=== PATIENT | female | born 2000 | race African-American/Black ===

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

== ENCOUNTER 2018-08-04 02:41 | Emergency (ER) | payer MEDICAID, OTHER ==
[~2018-08-04] VITALS: Ht 152.4 cm; Wt 93.0 kg
[~2018-08-04 02:41] MED LIST changes: +ALBU2.5V8 IH; -ALBU6.7H IH; +ONDA4TAB10 PO
[2018-08-04] MEDS ORDERED: PROCHLORPERAZINE 10 MG/2 ML VIAL. ONE (03:12)
[2018-08-04] MEDS ORDERED: ACETAMINOPHEN 500 MG TABLET PO ONE ×2 (03:12→03:15)
[2018-08-04] MEDS ORDERED: diphenhydrAMINE 50 MG/ML VIAL ONE (03:12)
[2018-08-04] MEDS ORDERED: IV NORMAL SALINE 500ML 500 ML IV ONE (03:15)
[2018-08-04] MEDS ORDERED: PROCHLORPERAZINE 10 MG/2 ML VIAL. IV ONE (03:15)
[2018-08-04] MEDS ORDERED: diphenhydrAMINE 50 MG/ML VIAL IVP ONE (03:15)
--- NOTE | 2018-08-04 03:20 | PHYS DOC ---
Adult General Chief Complaint Chief Complaint headache HPI HPI 20 weeks 19 years old presented to the emergency department with headache started today describes a throbbing headache all over her head suture with nausea and chest pain she did not take anything for it at home. Her boyfriend stated that she's been going through a lot of stress Review of Systems Review of Systems Constitutional: Denies fever or chills [] Eyes: Denies change in visual acuity, redness, or eye pain [] HENT: Denies nasal congestion or sore throat [] Respiratory: Denies cough or shortness of breath [] Cardiovascular: No additional information not addressed in HPI [] GI: Denies abdominal pain, nausea, vomiting, bloody stools or diarrhea [] : Denies dysuria or hematuria [] Musculoskeletal: Denies back pain or joint pain [] Integument: Denies rash or skin lesions [] Neurologic: Denies focal weakness or sensory changes [] Endocrine: Denies polyuria or polydipsia [] All other systems were reviewed and found to be within normal limits, except as documented in this note. Current Medications Current Medications Current Medications Medications (Trade) Dose Ordered Sig/Ivan Start Time Stop Time Status Last Admin Dose Admin Acetaminophen (Tylenol) 500 mg STK-MED ONCE 08/04/18 03:12 08/04/18 03:14 DC Diphenhydramine HCl (Benadryl) 25 mg 1X ONCE 08/04/18 03:15 08/04/18 03:16 UNV Prochlorperazine Edisylate (Compazine) 10 mg STK-MED ONCE 08/04/18 03:12 08/04/18 03:14 DC Sodium Chloride 500 ml @ 0 mls/hr 1X ONCE 08/04/18 03:15 08/04/18 03:16 UNV Allergies Allergies Allergies Coded Allergies Type Severity Reaction Last Updated Verified Penicillins Allergy Unknown Hives 05/26/17 Yes amoxicillin Allergy Unknown Hives 05/26/17 Yes Physical Exam Physical Exam Constitutional: Well developed, well nourished, no acute distress, non-toxic appearance. [] HENT: Normocephalic, atraumatic, bilateral external ears normal, oropharynx moist, no oral exudates, nose normal. [] Eyes: PERRLA, EOMI, conjunctiva normal, no discharge. [] Neck: Normal range of motion, no tenderness, supple, no stridor. [] Cardiovascular:Heart rate regular rhythm, no murmur [] Lungs & Thorax: Bilateral breath sounds clear to auscultation [] Abdomen: Bowel sounds normal, soft, no tenderness, no masses, no pulsatile masses. [] Skin: Warm, dry, no erythema, no rash. [] Back: No tenderness, no CVA tenderness. [] Extremities: No tenderness, no cyanosis, no clubbing, ROM intact, no edema. [] Neurologic: Alert and oriented X 3, normal motor function, normal sensory function, no focal deficits noted. [] Psychologic: Affect normal, judgement normal, mood normal. [] Current Patient Data Vital Signs Vital Signs Date Time Temp Pulse Resp B/P (MAP) Pulse Ox O2 Delivery O2 Flow Rate FiO2 08/04/18 02:46 98.4 106 22 98 Room Air EKG EKG [] Radiology/Procedures Radiology/Procedures [] Course & Med Decision Making Course & Med Decision Making Pertinent Labs and Imaging studies reviewed. (See chart for details) [] Final Impression Final Impression [] Problems: (1) Headache Qualifiers: Qualified Codes: G44.209 - Tension-type headache, unspecified, not intractable Dragon Disclaimer Dragon Disclaimer This electronic medical record was generated, in whole or in part, using a voice recognition dictation system. PRINCE ALEJANDRA MD Aug 04, 2018 03:20
[2018-08-04] MEDS ORDERED: IV NORMAL SALINE 1,000ML 1,000 ML IV ONE (03:45)
[2018-08-04 04:05] LABS: BASO # 0.1 x10^3/uL (0.0-0.2); BASO % 1 % (0-3); EOS # 0.4 x10^3/uL (0.0-0.7); EOS % 5 % (0-3); HEMATOCRIT 34.6 % (36.0-47.0); HEMOGLOBIN 11.9 g/dL (12.0-15.5); LYMPH % 12 % (24-48); MEAN CORPUSCULAR HEMOGLOBIN 31 pg (25-35); MEAN CORPUSCULAR HGB CONC 34 g/dL (31-37); MEAN CORPUSCULAR VOLUME 90 fL (79-100); MONO # 0.9 x10^3/uL (0.0-1.1); MONO % 10 % (0-9); NEUT # 6.6 x10^3uL (1.8-7.7); NEUT % 73 % (31-73); PLATELET COUNT 229 x10^3/uL (140-400); RED BLOOD COUNT 3.86 x10^6/uL (3.50-5.40); RED CELL DISTRIBUTION WIDTH 13.9 % (11.5-14.5)
[2018-08-04 04:13] LABS: CALCIUM 8.5 mg/dL (8.5-10.1); CREATININE 0.6 mg/dL (0.6-1.0); GFR 155.8; POTASSIUM 3.5 mmol/L (3.5-5.1)
[2018-08-04 04:25] VITALS: BP 100/56
--- NOTE | 2018-08-04 05:58 | EKG ---
[address] [address] Test Date: 2018-08-04 Test Time: 03:08:52 Pat Name: ANEL KOCH Department: Room: Gender: F [place]: : 2000 Requested By: PRINCE ALEJANDRA Order Number: [id number] Reading MD: Raphael Clement Measurements Intervals [place] Rate: 108 P: 34 MO: 138 QRS: 40 QRSD: 80 T: 4 QT: 330 QTc: 446 Interpretive Statements SINUS TACHYCARDIA NONSPECIFIC ST-T WAVE CHANGES. Electronically Signed On 08-04-2018 8:58:11 SUPPLY CHAIN DESIGN MANAGER by Raphael Clement
== END 2018-08-04 04:41 | disposition home or self-care (01) ==
LOC: ER 02:41
DX: O26.892 Other specified pregnancy related conditions, second trimester (principal); G44.209 Tension-type headache, unspecified, not intractable; R11.0 Nausea; R07.89 Other chest pain; Z3A.20 20 weeks gestation of pregnancy; Z88.0 Allergy status to penicillin; Z88.1 Allergy status to other antibiotic agents
CPT/HCPCS: 36415; 80048; 84484; 85025; 93005; 96374; 96375; 99284; J0780; J1200; J7030

== ENCOUNTER 2019-01-06 04:06 | Emergency (ER) | payer MEDICAID, OTHER ==
[~2019-01-06] VITALS: Ht 152.4 cm; Wt 90.0 kg
[2019-01-06 04:10] VITALS: BP 104/72
--- NOTE | 2019-01-06 04:12 | ED.ADGEN ---
Past History Past Medical History: No Pertinent History Past Surgical History: No Surgical History Smoking: Non-smoker Alcohol Use: None Drug Use: None Adult General Chief Complaint Chief Complaint ".. About 2 yesterday.. I started getting a fever.. and this Lt breast started hurting... I almost could not stand to breast feed.. here on the Lt. " [facility] HPI Patient is a 18 year old female who presents with above hx and complaints Lt. Breast mastitis. Pt. Lt breast is swollen, erythemic, tender. No axillary adenopathy. Patient delivered in December and has been breast-feeding without problems until yesterday. No History of immunosuppression. No history of travel. No history of trauma. Patient does have a mild headache, but started the same time as the left breast tenderness. Patient as a child did develop a rash with p enicillin, But thinks she has used Keflex before for infections. Patient's had no previous history of mastitis. Patient is normally healthy. 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 Review of Systems Review of Systems Constitutional: Complaints of fever Eyes: Denies change in visual acuity, redness, or eye pain [] HENT: Denies nasal congestion or sore throat [] Respiratory: Denies cough or shortness of breath []complains of left breast pain, swelling, erythema Cardiovascular: No additional information not addressed in HPI [] GI: Denies abdominal pain, nausea, vomiting, bloody stools or diarrhea [] : Denies dysuria or hematuria [] Musculoskeletal: Denies back pain or joint pain [] Integument: Denies rash or skin lesions [] Neurologic: Complaints of mild headache.. Denies, focal weakness or sensory changes [] Endocrine: Denies polyuria or polydipsia [] All other systems were reviewed and found to be within normal limits, except as documented in this note. Family History Family History Noncontributory Current Medications Current Medications Current Medications Medications (Trade) Dose Ordered Sig/Ivan Start Time Stop Time Status Last Admin Dose Admin Acetaminophen (Tylenol) 500 mg STK-MED ONCE 01/06/19 04:42 01/06/19 04:43 DC Cephalexin HCl (Keflex) 250 mg 1X ONCE 01/06/19 05:00 01/06/19 05:01 DC 01/06/19 04:44 250 MG Lactated Ringer's 1,000 ml @ 1,000 mls/hr Q1H 01/06/19 04:30 01/06/19 04:54 DC Oxycodone/ Acetaminophen (Percocet 5/325) 1 tab 1X ONCE 01/06/19 04:45 01/06/19 04:48 DC 01/06/19 04:48 1 TAB Allergies Allergies Allergies Coded Allergies Type Severity Reaction Last Updated Verified Penicillins Allergy Unknown Hives 05/26/17 Yes amoxicillin Allergy Unknown Hives 05/26/17 Yes Physical Exam Physical Exam Constitutional: Well developed, well nourished, in moderately acute distress, non-toxic appearance. [] HENT: Normocephalic, atraumatic, bilateral external ears normal, oropharynx moist, no oral exudates, nose normal. [] Eyes: PERRLA, EOMI, conjunctiva normal, no discharge. [] Neck: Normal range of motion, no tenderness, supple, no stridor. [] Cardiovascular:Heart rate regular rhythm, no murmur [] Lungs & Thorax: Bilateral breath sounds with apex on auscultation []left breast tender, swollen, erythemic. Abdomen: Bowel sounds normal, soft, no tenderness, no masses, no pulsatile masses. [] Skin: Warm, dry, no erythema, no rash. [] Back: No tenderness, no CVA tenderness. [] Extremities: No tenderness, no cyanosis, no clubbing, ROM intact, no edema. [] Neurologic: Alert and oriented X 3, normal motor function, normal sensory function, no focal deficits noted. []DTRs +2 patella and brachial. No drift. Ambulatory without problems. Psychologic: Affect anxious, judgement normal, mood normal. [] Current Patient Data Vital Signs Vital Signs Date Time Temp Pulse Resp B/P (MAP) Pulse Ox O2 Delivery O2 Flow Rate FiO2 01/06/19 04:10 99.8 110 20 99 Room Air EKG EKG [] Radiology/Procedures Radiology/Procedures deferred[] Course & Med Decision Making Course & Med Decision Making Pertinent Labs and Imaging studies reviewed. (See chart for details) Labs and CT deferred at this time- Patient will treat fever and left breast tenderness as mastitis. Patient massage breast.. Patient to continue the feed with left breast. Moist heat packs. Patient to do a trial of Keflex 250 mg 4 times a day. If patient develops a rash she will need to change to an alternate antibiotic. Patient follow-up primary care. Patient take Tylenol for pain. Patient return if any concerns. She informed that antibiotics may reduce effectiveness of control [] Final Impression Final Impression 1. Left mastitis[] Sayraon Disclaimer Sayraon Disclaimer This electronic medical record was generated, in whole or in part, using a voice recognition dictation system. Discharge Summary Visit Information Final Diagnosis Problems Medical Problems: (1) Mastitis Status: Acute Brief Hospital Course Allergies Allergies Coded Allergies Type Severity Reaction Last Updated Verified Penicillins Allergy Unknown Hives 05/26/17 Yes amoxicillin Allergy Unknown Hives 05/26/17 Yes Vital Signs Vital Signs Date Time Temp Pulse Resp B/P (MAP) Pulse Ox O2 Delivery O2 Flow Rate FiO2 01/06/19 04:10 99.8 110 20 99 Room Air Brief Hospital Course Ms. Aguilar is a 18 old female who presented with Lt breast mastitis Discharge Information Condition at Discharge: Stable Disposition/Orders: D/C to Home Dischare Medications Current Medications Lactated Ringer's 1,000 ml @ 1,000 mls/hr Q1H IV ; Start 01/06/19 at 04:30; Stop 01/06/19 at 04:54; Status DC Cephalexin HCl (Keflex) 250 mg 1X ONCE PO Last administered on 01/06/19at 04:44; Admin Dose 250 MG; Start 01/06/19 at 05:00; Stop 01/06/19 at 05:01; Status DC Acetaminophen (Tylenol) 500 mg STK-MED ONCE PO ; Start 01/06/19 at 04:42; Stop 01/06/19 at 04:43; Status DC Oxycodone/ Acetaminophen (Percocet 5/325) 1 tab 1X ONCE PO Last administered on 01/06/19at 04:48; Admin Dose 1 TAB; Start 01/06/19 at 04:45; Stop 01/06/19 at 04:48; Status DC Active Scripts Active Keflex (Cephalexin) 500 Mg Capsule 250 Mg PO QID 10 Days Zofran Odt (Ondansetron) 4 Mg Tab.rapdis 4 Mg PO Q6HRS Naproxen Sodium 275 Mg Tablet 275 Mg PO BID 7 Days Prednisone 20 Mg Tablet 3 Tab PO DAILY 5 Days Proventil Hfa Inhaler (Albuterol Sulfate) 6.7 Gm Hfa.aer.ad 1-2 Puff IH PRN Q4HRS PRN 7 Days Please dispense inhaler with a spacer Reported No Known Medications Prior To Admisstion (Info) Each 1 Each Dragon Disclaimer This chart was dictated in whole or in part using Voice Recognition software in a busy, high-work load, and often noisy Emergency Department environment. It may contain unintended and wholly unrecognized errors or omissions. RULA JOLLEY MD January 06, 2019 04:12
[2019-01-06] MEDS ORDERED: IV RINGERS SOLUTION,LACTATED 1,000 ML IV SCH (04:30)
[2019-01-06] MEDS ORDERED: ACETAMINOPHEN 500 MG TABLET PO ONE (04:42)
[2019-01-06] MEDS ORDERED: CEPH-264 PO (04:42)
[2019-01-06] MEDS ORDERED: oxyCODONE/APAP 5/325 1 TAB TABLET PO ONE (04:45)
--- NOTE | 2019-01-06 04:50 | RAD ---
CT brain without contrast. HISTORY: Headache Noncontrast CT images were obtained to the brain. Visualized sinuses are clear. Mastoids are normally aerated. There is no intracranial hemorrhage or subdural hematoma. There are artifacts off the metallic density devices in the hair. There is no mass or shift of the midline. There are no abnormal areas of increased or decreased attenuation. Ventricles are normal in size. An acute CVA is not identified. IMPRESSION: 1. Artifacts. 2. No intracranial hemorrhage or acute finding noted. Electronically signed by: Colton Hammer MD (01/06/2019 4:47 AM) [id number]
[2019-01-06] MEDS ORDERED: CEPHALEXIN 250 MG CAPSULE PO ONE (05:00)
== END 2019-01-06 05:01 | disposition home or self-care (01) ==
LOC: ER 04:06
DX: O91.22 Nonpurulent mastitis associated with the puerperium (principal); Z88.0 Allergy status to penicillin; Z88.1 Allergy status to other antibiotic agents
CPT/HCPCS: 70450; 99284-25

== ENCOUNTER 2019-06-14 20:25 | Emergency (ER) | payer OTHER ==
[~2019-06-14] VITALS: Ht 152.4 cm; Wt 90.0 kg
[~2019-06-14 20:25] MED LIST changes: +CEPH-264 PO
[2019-06-14 20:40] VITALS: BP 109/72
[2019-06-14] MEDS ORDERED: IPRATRPIUM/ALBUTEROL 0.5/2.5MG 3 ML NEBU. NEB ONE (20:45)
[2019-06-14] MEDS ORDERED: ALBUTEROL SULFATE 2.5 MG/3 ML NEBU. ONE (20:58)
[2019-06-14] MEDS ORDERED: LIDO:MAALOX 1:1 20 ML SINGLE DOSE. PO ONE (21:00)
[2019-06-14] MEDS ORDERED: DEXAMETHASONE SOD PHOS 10 MG/ML VIAL PO ONE (21:00)
[2019-06-14] MEDS ORDERED: ALBUTEROL SULFATE 2.5 MG/3 ML NEBU. NEB ONE (21:00)
--- NOTE | 2019-06-14 21:22 | PHYS DOC ---
Past History Past Medical History: Asthma Past Surgical History: No Surgical History Smoking: Non-smoker Alcohol Use: None Drug Use: None Adult General Chief Complaint Chief Complaint: ASTHMA HPI HPI Patient is a 18 year old female who presents with complaint of shortness of breath and coughing. Patient states her symptoms started suddenly today. Notes that she has history of asthma. States that her asthma symptoms are exacerbated by cold weather. The weather has recently become very cold over the past few days. Denies any fevers. States that she has been trying to use her albuterol inhaler with no significant relief. Has been coughing up yellow sputum. Denies chest or abdominal pain currently. States that she has been having drainage which has been making her cough very persistent. Has been having vomiting due to coughing hard. Review of Systems Review of Systems Constitutional: Denies fever or chills [] Eyes: Denies change in visual acuity, redness, or eye pain [] HENT: Postnasal drip, sore throat[] Respiratory: Cough, wheezing, shortness of breath[] Cardiovascular: Denies chest pain or edema[] GI: Posttussive emesis, denies abdominal pain, bloody stools or diarrhea [] : Denies dysuria or hematuria [] Musculoskeletal: Denies back pain or joint pain [] Integument: Denies rash or skin lesions [] Neurologic: Denies headache, focal weakness or sensory changes [] All other systems were reviewed and found to be within normal limits, except as documented in this note. Current Medications Current Medications Current Medications Medications (Trade) Dose Ordered Sig/Ivan Start Time Stop Time Status Last Admin Dose Admin Albuterol Sulfate (Ventolin) 2.5 mg STK-MED ONCE 06/14/19 20:58 06/14/19 20:58 DC Albuterol/ Ipratropium (Duoneb) 3 ml 1X ONCE 06/14/19 20:45 06/14/19 21:02 DC 06/14/19 20:45 3 ML Dexamethasone Sodium Phosphate (Decadron) 10 mg 1X ONCE 06/14/19 21:00 06/14/19 21:02 DC 06/14/19 21:13 10 MG Multi-Ingredient Mouthwash/Gargle (Gi Cocktail) 20 ml 1X ONCE 06/14/19 21:00 06/14/19 21:02 DC 06/14/19 21:13 20 ML Allergies Allergies Allergies Coded Allergies Type Severity Reaction Last Updated Verified Penicillins Allergy Unknown Hives 05/26/17 Yes amoxicillin Allergy Unknown Hives 05/26/17 Yes Physical Exam Physical Exam Constitutional: Alert, afebrile, appears in moderate distress due to coughing. [] HENT: Normocephalic, atraumatic, bilateral external ears normal, oropharynx moist, no oral exudates, nose normal. [] Eyes: PERRLA, EOMI, conjunctiva normal, no discharge. [] Neck: Normal range of motion, no tenderness, supple, no stridor. [] Cardiovascular: Tachycardiac, regular rhythm, no murmur [] Lungs & Thorax: Mildly decreased air movement bilaterally, expiratory wheezes bilaterally, no rales[] Abdomen: Bowel sounds normal, soft, no tenderness, no masses, no pulsatile masses. [] Skin: Warm, dry, no erythema, no rash. [] Back: No tenderness, no CVA tenderness. [] Extremities: No tenderness, no cyanosis, no clubbing, ROM intact, no edema. [] Neurologic: Alert and oriented X 3, normal motor function, normal sensory function, no focal deficits noted. [] Current Patient Data Vital Signs Vital Signs Date Time Temp Pulse Resp B/P (MAP) Pulse Ox O2 Delivery O2 Flow Rate FiO2 06/14/19 20:40 98.6 137 24 92 Room Air Lab Results Current Medications Medications (Trade) Dose Ordered Sig/Ivan Route PRN Reason Start Time Stop Time Status Last Admin Dose Admin Albuterol/ Ipratropium (Duoneb) 3 ml 1X ONCE NEB 06/14/19 20:45 06/14/19 21:02 DC 06/14/19 20:45 Albuterol Sulfate (Ventolin) 2.5 mg 1X ONCE NEB 06/14/19 21:00 06/14/19 21:02 DC 06/14/19 21:13 Albuterol Sulfate (Ventolin) 2.5 mg STK-MED ONCE .ROUTE 06/14/19 20:58 06/14/19 20:58 DC Dexamethasone Sodium Phosphate (Decadron) 10 mg 1X ONCE PO 06/14/19 21:00 06/14/19 21:02 DC 06/14/19 21:13 Multi-Ingredient Mouthwash/Gargle (Gi Cocktail) 20 ml 1X ONCE PO 06/14/19 21:00 06/14/19 21:02 DC 06/14/19 21:13 EKG EKG Not performed[] Radiology/Procedures Radiology/Procedures Two-view chest x-ray interpreted by me: No infiltrate, no effusion, normal cardiac silhouette[] Course & Med Decision Making Course & Med Decision Making Pertinent Labs and Imaging studies reviewed. (See chart for details) Patient was treated in the emergency department with one unit dose DuoNeb and one unit dose AccuNeb in addition to oral Decadron and a GI cocktail. After treatment, the patient's work of breathing has significantly improved and patient's coughing has decreased considerably. Patient's heart rate was noted to be elevated in the emergency department, however in checking on patient's vital signs from previous visits, she notably has an elevated heart rate at baseline of 105-110 bpm. Clinically the patient appears improved and is not displaying labored respirations at this time. The patient appears appropriate for outpatient treatment and recommended follow-up in the next 3 days with primary doctor for reevaluation. Discharged with prescriptions for Tessalon Perles, azithromycin, 5 days of prednisone, and advised patient to use albuterol inhaler 2 puffs every 4 hours as needed for wheezing and shortness of breath. Recommended return to the emergency department for any worsening symptoms. Patient was understanding and in agreement with treatment plan.[] Dragon Disclaimer Dragon Disclaimer This electronic medical record was generated, in whole or in part, using a voice recognition dictation system. Departure Departure: Impression: Primary Impression: Acute asthma exacerbation Disposition: HOME, SELF-CARE Condition: IMPROVED Referrals: BASHIR STRAUSS (PCP) Patient Instructions: Asthma, Adult Additional Instructions: Follow-up with your primary care provider in 3 days for reevaluation. Return to the emergency department for any worsening symptoms. Scripts Benzonatate (TESSALON PERLE) 100 Mg Capsule 1 CAP PO TID PRN for COUGH, #21 CAP Prov: KELLY HOWARD MD 06/14/19 Azithromycin (AZITHROMYCIN TABLET) 250 Mg Tablet 1 PKG PO UD for 5 Days, #6 TAB 0 Refills 2 the first day followed by 1 for days 2-5 Prov: KELLY HOWARD MD 06/14/19 Prednisone (PREDNISONE) 20 Mg Tablet 60 MG PO DAILY for 5 Days, #15 TAB Prov: KELLY HOWARD MD 06/14/19 Problem Qualifiers Primary Impression: Acute asthma exacerbation Asthma severity: moderate Asthma persistence: persistent Qualified Codes: J45.41 - Moderate persistent asthma with (acute) exacerbation KELLY HOWARD MD Jun 14, 2019 21:22
[2019-06-14] MEDS ORDERED: BENZ100C PO (21:32)
[2019-06-14] MEDS ORDERED: AZIT250T6 PO (21:32)
[2019-06-14] MEDS ORDERED: PRED20TA PO (21:32)
--- NOTE | 2019-06-14 22:08 | RAD ---
EXAM: CHEST 2 VIEWS. HISTORY: Cough, shortness of breath. COMPARISON: 05/03/2017. FINDINGS: Frontal and lateral views of the chest are obtained. The inspiration is small. Basilar opacities may indicate atelectasis or atypical pneumonia in the setting. There is no pneumothorax or pleural effusion. The heart is not enlarged. IMPRESSION: 1. Correlate for evidence of infection to differentiate atypical pneumonia from basilar atelectasis. Electronically signed by: Oly Jackson MD (06/14/2019 10:05 PM) [employer]
== END 2019-06-14 21:36 | disposition home or self-care (01) ==
LOC: ER 20:25
DX: J45.41 Moderate persistent asthma with (acute) exacerbation (principal); Z88.1 Allergy status to other antibiotic agents; Z88.0 Allergy status to penicillin
CPT/HCPCS: 71046; 94640; 99284; J1100; J7613; J7620

== ENCOUNTER 2020-10-12 18:49 | Emergency (ER) | payer OTHER ==
[~2020-10-12] VITALS: Ht 152.4 cm; Wt 90.0 kg
[~2020-10-12 18:49] MED LIST changes: +AZIT250T6 PO; +BENZ100C PO
[2020-10-12 19:16] VITALS: BP 98/66
[2020-10-12 20:12] LABS: BILIRUBIN,URINE NEG (NEG); CLARITY,URINE CLEAR; COLOR,URINE YELLOW; GLUCOSE,URINE NEG (NEG)
[2020-10-12 20:13] LABS: BACTERIA,URINE FEW /HPF (0-FEW); NITRITE,URINE NEG (NEG); SQUAMOUS EPITHELIAL CELL,UR MOD /LPF; UROBILINOGEN,URINE 0.2 mg/dL (0.2 mg/dL)
[2020-10-12] MEDS ORDERED: METR500T PO (22:02)
--- NOTE | 2020-10-12 22:02 | PHYS DOC ---
Past History Past Medical History: Asthma (CALE CANO APRN) Past Surgical History: No Surgical History (CALE CANO APRN) Smoking: Non-smoker Alcohol Use: None Drug Use: None (CALE CANO APRN) Adult General Chief Complaint Chief Complaint: VAGINAL PROBLEM HPI HPI Patient is a 20-year-old female who presents to the emergency department reporting vaginal itching and irritation that started today after having rough sex. Patient denies any vaginal discharge, denies urinary tract infection type signs and symptoms, states she is unsure about STIs. Patient denies abdominal pain, nausea, vomiting, diarrhea, constipation. Patient denies chest congestion or chest pains, patient denies shortness of breath, nasal congestion, visual disturbances, homicidal suicidal ideations, rashes of her skin. Patient denies any loss of taste or loss of smell, denies fever or chills at home. (CALE CANO APRN) Review of Systems Review of Systems 14 body systems of review of systems have been reviewed. See HPI for pertinent positives and negative responses, otherwise all other systems are negative, nonpertinent or noncontributory. (CALE CANO APRN) Allergies Allergies Allergies Coded Allergies Type Severity Reaction Last Updated Verified Penicillins Allergy Unknown Hives 10/12/20 Yes amoxicillin Allergy Unknown Hives 10/12/20 Yes (CALE CANO APRN) Physical Exam Physical Exam Constitutional: Well developed, well nourished, no acute distress, non-toxic appearance. HENT: Normocephalic, atraumatic, bilateral external ears normal, oropharynx moist, no oral exudates, nose normal. Eyes: PERRLA, EOMI, conjunctiva normal, no discharge. Neck: Normal range of motion, no tenderness, supple, no stridor. Cardiovascular:Heart rate regular rhythm, no murmur Lungs & Thorax: Bilateral breath sounds clear to auscultation Abdomen: Bowel sounds normal, soft, no tenderness, no masses, no pulsatile masses. Skin: Warm, dry, no erythema, no rash. Back: No tenderness, no CVA tenderness. Extremities: No tenderness, no cyanosis, no clubbing, ROM intact, no edema. Neurologic: Alert and oriented X 3, normal motor function, normal sensory function, no focal deficits noted. Psychologic: Affect normal, judgement normal, mood normal. : External vaginal exam without rashes or lesions to labia vagina her surround ing structures. Speculum exam noted pink frothy vaginal discharge around cervix, cervical os was closed, no blood noted, vaginal mucosa pink, no lesions appreciated. Bimanual examination without cervical motion tenderness, or adnexal pain. (CALE CANO APRN) Current Patient Data Vital Signs Vital Signs Date Time Temp Pulse Resp B/P (MAP) Pulse Ox O2 Delivery O2 Flow Rate FiO2 10/12/20 19:16 97.9 58 18 98/66 (77) 100 Lab Results Laboratory Tests Test 10/12/20 19:40 10/12/20 19:45 Urine Collection Type Unknown Urine Color Yellow Urine Clarity Clear Urine pH 7.0 Urine Specific [place] 1.015 Urine Protein Neg (NEG-TRACE) Urine Glucose (UA) Neg mg/dL (NEG) Urine Ketones (Stick) Neg mg/dL (NEG) Urine Blood Trace (NEG) Urine Nitrite Neg (NEG) Urine Bilirubin Neg (NEG) Urine Urobilinogen Dipstick 0.2 mg/dL (0.2 mg/dL) Urine Leukocyte Esterase Trace (NEG) Urine RBC 3-5 /HPF (0-2) Urine WBC 1-4 /HPF (0-4) Urine Squamous Epithelial Cells Mod /LPF Urine Bacteria Few /HPF (0-FEW) POC Urine HCG, Qualitative hcg negative (Negative) Microbiology 10/12/20 Wet Prep - Final, Complete (CALE CANO APRN) EKG EKG [] (CALE CANO APRN) Radiology/Procedures Radiology/Procedures [] (CALE CANO APRN) Heart Score Risk Factors: Risk Factors: DM, Current or recent (<one month) smoker, HTN, HLP, family history of CAD, obesity. Risk Scores: Risk Factors: DM, Current or recent (<one month) smoker, HTN, HLP, family h istory of CAD, obesity. (CALE CANO APRN) Course & Med Decision Making Course & Med Decision Making Pertinent Labs and Imaging studies reviewed. (See chart for details) 20-year-old female, vital signs reviewed, presents for concerns of possible STI. A pelvic exam was performed. STI cultures were sent to include wet prep, vagi nitis panel, GC chlamydia by PCR. The wet prep and vaginitis panel were negative for yeast infection, or trichomonas, suggestive of bacterial vaginosis. GC/chlamydia pending, Discussed with patient findings of wet prep/vaginitis panel, patient will be t reated with 500 mg Flagyl twice daily x7 days, will wait for GC chlamydia testing to be completed before starting on any further antibiotics. Patient gave verbal understanding of discharge home instructions, antibiotic use, follow-up with primary care for ongoing symptoms, practice safe sex at home, return to ER precautions or concerns, discharged home without incident. (CALE CANO APRN) Dragon Disclaimer Dragon Disclaimer This electronic medical record was generated, in whole or in part, using a voice recognition dictation system. (CALE CANO APRN) Departure Departure: Impression: Primary Impression: Bacterial vaginosis Disposition: 01 DC HOME SELF CARE/HOMELESS Condition: GOOD Referrals: MARKO LIU MD (PCP) Patient Instructions: Bacterial Vaginosis Additional Instructions: Please take medications as prescribed, follow-up with your primary care for ongoing symptoms, return to the emergency department for worsening symptoms or other concerns, you have a GC and Chlamydia culture pending in the lab, if either are positive you will be contacted and given further instructions on antibiotics. EMERGENCY DEPARTMENT GENERAL DISCHARGE INSTRUCTIONS Thank you for coming to [facility] ([facility]) today and trusting us with you care. We trust that you had a positivie experience in our Emergency Department. If you wish to speak to the department management, you may call the director at [phone]. YOUR FOLLOW UP INSTRUCTIONS ARE FOLLOWS: 1. Do you have a private Doctor? If you do not have a private doctor, please ask for a resource list of physicians or clinics that may be able to assist you with follow up care. 2. The Emergency Physician has interpreted your x-rays. The X-Ray specialist will also review them. If there is a change in the findings, you will be notified in 48 hours when at all possible. 3. A lab test or culture has been done, your results will be reviewed and you will be notified if you need a change in treatment. ADDITIONAL INSTRUCTIONS AND INFORMATION: 1. Your care today has been supervised by a physician who is specially trained in emergency care. Many problems require more than one evaluation for a complete diagnosis and treatment. We recommend that you schedule your follow up appointment as recommended to ensure complete treatment of you illness or injury. If you are unable to obtain follow up care and continue to have a problem, or if your condition worsens, we recommend that you return to the ED. 2. We are not able to safely determine your condition over the phone nor are we able to give sound medical advice over the phone. For these safety reasons, if you call for medical advice we will ask you to come to the ED for further evaluation. 3. If you have any questions regarding these discharge instructions please call the ED at [phone]. SAFETY INFORMATION: In the interest of safety, wellness, and injury prevention; we encourage you to wear your sealbelt, if you smoke; quite smoking, and we encourage family to use a protective helmet for bicycling and other sporting events that present an increased risk for head injury. IF YOUR SYMPTOMS WORSEN OR NEW SYMPTOMS DEVELOP, OR YOU HAVE CONCERNS ABOUT YOUR CONDITION; OR IF YOUR CONDITION WORSENS WHILE YOU ARE WAITING FOR YOUR FOLLOW UP KARELY OINTMENT; EITHER CONTACT YOUR PRIMARY CARE DOCTOR, THE PHYSICIAN WHOSE NAME AND NUMBER YOU WERE GIVEN, OR RETURN TO THE ED IMMEDIATELY. Scripts Metronidazole (FLAGYL) 500 Mg Tablet 1 TAB PO BID for BACTERIAL INFECTION, #14 TAB 0 Refills Prov: CALE CANO APRN 10/12/20 Attending Signature Attending Signature I have participated in the care of this patient and I have reviewed and agree with all pertinent clinical information above including history, exam, and recommendations. (RULA JOLLEY MD) CALE CANO APRN Oct 12, 2020 22:02 RULA JOLLEY MD Oct 13, 2020 06:17
[2020-10-15 20:07] LABS: CHLAMYDIA PROBE Negative (Negative)
== END 2020-10-12 22:12 | disposition home or self-care (01) ==
LOC: ER 18:49
DX: N76.0 Acute vaginitis (principal); B96.89 Other specified bacterial agents as the cause of diseases classified elsewhere; J45.909 Unspecified asthma, uncomplicated; Z88.0 Allergy status to penicillin; Z88.1 Allergy status to other antibiotic agents
CPT/HCPCS: 81001; 81025; 87086; 87480; 87491; 87510; 87591; 87660; 99284; Q0111; 36415